=== PATIENT | male | born 1985 | race Caucasian/White ===

== ENCOUNTER 2020-12-07 11:15 | Emergency (ER) | payer BC ==
[~2020-12-07] VITALS: Ht 175.3 cm; Wt 86.2 kg
[2020-12-07 11:26] VITALS: BP 154/86
[2020-12-07] MEDS ORDERED: FLEXERIL PO (12:36)
[2020-12-07] MEDS ORDERED: MEDROLDOSEPACK PO (12:36)
[2020-12-07] MEDS ORDERED: APAP W/CODEINE1 TA2 PO (12:36)
[2020-12-07] MEDS ORDERED: NAPROSYN500 MG PO (12:36)
== END 2020-12-07 12:51 | disposition home or self-care (01) ==
LOC: M.ERS 11:15
DX: M79.601 Pain in right arm (principal); M54.6 Pain in thoracic spine